=== PATIENT | male | born 1965 | race Caucasian/White ===

== ENCOUNTER 2018-04-19 14:06 | Emergency (ER) | payer OTHER ==
--- NOTE | 2018-04-19 15:16 | UC ---
Skin Complaint HPI - HPI Summary HPI Summary: Per manager hospitality "C/o bump in middle of forehead that has recently grown and does have pus he has squeezed out of it. Now getting bigger and sore. Red around area. " he has had the cyst for many years w/o any problem. recently irritated and grew. [place]. 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 no fevers or chills. - History of Current Complaint Chief Complaint: UCSkin Time Seen by Provider: 04/19/18 15:12 Stated Complaint: SKIN COMP ON FOREHEAD Pain Intensity: 3 - Allergy/Home Medications Allergies/Adverse Reactions: Allergies Allergy/AdvReac Type Severity Reaction Status Date / Time No Known Allergies Allergy Verified 04/19/18 15:03 Home Medications: Home Medications Aspirin 81 mg CHEW TAB* 81 mg PO DAILY 04/19/18 [History Confirmed 04/19/18] Review of Systems Constitutional: Negative Skin: Other - cyst forehead Eyes: Negative ENT: Negative Respiratory: Negative Cardiovascular: Negative Gastrointestinal: Negative Genitourinary: Negative Motor: Negative Neurovascular: Negative Musculoskeletal: Negative Neurological: Negative Psychological: Negative Is Patient Immunocompromised?: No All Other Systems Reviewed And Are Negative: Yes PMH/Surg Hx/FS Hx/Imm Hx Previously Healthy: Yes - Surgical History Surgery Procedure, Year, and Place: appendectomy. craniotomy. 7 surgeries for ependymoma - Family History Known Family History: Positive: Hypertension - Social History Alcohol Use: Daily Alcohol Amount: 4 beers per day Substance Use Type: None Smoking Status (MU): Current Every Day Smoker Type: Smokeless Tobacco Amount Used/How Often: 1 can of chew every 3 days Physical Exam Triage Information Reviewed: Yes Appearance: Well-Appearing, No Pain Distress, Well-Nourished - very pleasant Vital Signs: Initial Vital Signs Temp 99.0 F 04/19/18 14:52 Pulse 68 04/19/18 14:52 Resp 16 04/19/18 14:52 BP 162/85 04/19/18 14:52 Pulse Ox 99 04/19/18 14:52 Vital Signs Reviewed: Yes Eye Exam: Normal ENT Exam: Normal Neck exam: Normal Neck: Positive: Supple, Nontender, No Lymphadenopathy Respiratory Exam: Normal Respiratory: Positive: Lungs clear Cardiovascular: Positive: RRR, No Murmur Musculoskeletal Exam: Normal Neurological Exam: Normal Psychological Exam: Normal Skin: Positive: Other - mid forehead with marble sized cyst mid forehad w/ centralized poor. no erythema. no active d/c. Course/Dx - Course Course Of Treatment: abscess was easily manipulate dto extract moderate amount of serosanguionous d/c. he tolerated procedure well. He preferred manual manipulation w/ abx over I&D at this time. Pain is resolved s/p manipulation. Explained that he may need to have the remnants of the cyst removed by a general surgeon. -I recommend return here if sx worsen for I&D of sebaceous cyst. He is very agreeable w/ this plan. - Differential Diagnoses - Skin Complaint Differential Diagnoses: Abscess, Other - sebaceous cyst - Diagnoses Provider Diagnoses: sebaceous cyst Discharge - Sign-Out/Discharge Documenting (check all that apply): Discharge/Admit/Transfer - Discharge Plan Condition: Stable Disposition: HOME Prescriptions: Sulfamethox/Trimethoprim DS* [Bactrim DS 800/160 TAB*] 1 tab PO BID #20 tab Patient Education Materials: Epidermal Inclusion Cysts (ED) Referrals: Andrea Mata [Medical Doctor] - No Primary Care Phys,NOPCP [Primary Care Provider] - Additional Instructions: -Make sure to take a probiotic daily while on antibiotics to help prevent a potential complication of antibiotic use called c diff. Some well known brands that can be found OTC are florastor, align and [place]. Make sure to complete the entire prescription unless advised otherwise by your health care provider _ You can follow up with the general surgeon to have the entire cyst removed if it persists. - Billing Disposition and Condition Condition: STABLE Disposition: HOME
== END 2018-04-19 15:52 | disposition home or self-care (01) ==
LOC: UCCORT 14:06
DX: L72.3 Sebaceous cyst (principal); F17.290 Nicotine dependence, other tobacco product, uncomplicated
CPT/HCPCS: 99202; G0463